=== PATIENT | male | born 1995 | race African-American/Black ===

== ENCOUNTER 2018-09-23 13:53 | Emergency (ER) | payer MEDICAID ==
[~2018-09-23] VITALS: Ht 182.9 cm; Wt 68.0 kg
[~2018-09-23 13:53] MED LIST: ABILIFY15 MG ORAL; ABILIFY20 MG ORAL; AMOXICILLIN500 MG ORAL; ATIVAN1 MG ORAL; CLARITIN10 MG ORAL; CLARITIN5 MG ORAL; IBUPROFEN600 MG ORAL; LEVAQUIN500 MG ORAL; NKM; PENICILLIN V P500 MG ORAL; PROAIR HFA8.5 GM INH; RANITIDINE HCL150 MG ORAL; RISPERDAL2 MG ORAL; TRAZODONE HCL150 MG ORAL; ZANTAC150 MG ORAL
--- NOTE | 2018-09-23 13:57 | Emergency Room Report ---
History of Present Illness General Chief Complaint: Flu Like Symptoms Source: Patient Present Illness HPI 23-year-old male patient presents ER brought in by ambulance complaining of flulike symptoms for the past 2-3 days. reports Trichomonas during this time, does not smoke persist. Reports muscle pain in his legs and decreased appetite during this time. denies recent injury, trauma, physical activity. Denies dysuria, hematuria, blood in the stool. Denies vomiting or diarrhea. Reports subjective fever at home, denies chills, afebrile currently. Denies chest pain, shortness of breath, abdominal pain. Reports history of asthma, states does not have an inhaler or use an inhaler, denies breathing difficulties during this time. Denies drinking, drugs, alcohol use. Denies other acute symptoms. denies other past medical history.states did not get influenza vaccine this year. denies sore throat. denies neck pain. denies recent travel. Patient walked into ER, nontoxic appearing, talking without difficulty. Allergies: Coded Allergies: EGG (Verified Allergy, Severe, Throat Swelling , 04/26/16) Patient History Past Medical History: see triage record Reviewed Nursing Documentation: PMH: Agreed; PSxH: Agreed Nursing Documentation-PMH Past Medical History: No Stated History Hx Hypertension: No Hx Pacemaker: No Hx Asthma: Yes Hx COPD: No Hx Diabetes: No Hx Cancer: No Hx Gastrointestinal Problems: Yes Hx Dialysis: No Hx Neurological Problems: Yes - ADHD OCD BIPOLAR Hx Cerebrovascular Accident: No Hx Seizures: No Review of Systems All Other Systems: negative except mentioned in HPI Physical Exam Vital Signs Date Time Temp Pulse Resp B/P (MAP) Pulse Ox O2 Delivery O2 Flow Rate FiO2 09/23/18 13:47 99.5 71 16 116/71 100 Room Air Sp02 EP Interpretation: reviewed, normal General Appearance: well appearing, no apparent distress, alert, GCS 15, non- toxic Head: normocephalic, atraumatic Eyes: bilateral eye normal inspection, bilateral eye PERRL ENT: hearing grossly normal, normal pharynx, no angioedema, normal voice, TMs + canals normal, uvula midline, moist mucus membranes Neck: full range of motion Respiratory: lungs clear, normal breath sounds, no rhonchi, no respiratory distress, no accessory muscle use, no wheezing, speaking full sentences, other - no stridor Cardiovascular #1: regular rate, rhythm, no edema Gastrointestinal: non tender, soft, no mass, non-distended, no guarding, no rebound Genitourinary: no CVA tenderness Musculoskeletal: back normal, digits/nails normal, gait/station normal, normal range of motion, non-tender Neurologic: alert, oriented x3, responsive, motor strength/tone normal, sensory intact Psychiatric: mood/affect normal Skin: no rash Lymphatic: no adenopathy Medical Decision Making PA Attestation Dr. Magallanes is my supervising Physician whom patient management has been discussed with. Diagnostic Impression: Primary Impression: Influenza-like symptoms ER Course Pt presents to ED c/o "flulike symptoms." DDX considered but are not limited to influenza, viral URI, pneumonia, strep throat, rhinitis, sinusitis, otitis media, otitis externa, bronchitis. VITAL SIGNS are WNL, patient is afebrile. ER COURSE: Provided with Tylenol and cough medication in the ER. physical exam benign, patient nontoxic appearing, answering questions without difficulty, smiling, ambulatory independently without difficulty. Lungs clear to auscultation, no wheezes, rhonci or rales. patient afebrile. Low suspicion for pneumonia, will not order CXR at this time. does not require breathing treatment at this time, lungs clear to auscultation, provide patient with albuterol prescription due to history of asthma. Due to the patients complaints and signs and symptoms, will provide patient with Tamiflu to cover for influenza. Symptomatic treatment. drink plenty of fluids. Salt water gargles for sore throat. Followup with PCP for further treatment and/or referral as needed. ER precautions given. DISCHARGE: -Rx given for albuterol -Rx given for Tessalon Perles -Rx given for Sudafed -Rx given for Tamiflu for influenza. -Rx provided for Claritin At this time pt is stable for d/c to home. Patient is resting comfortably, in no acute distress, nontoxic appearing. Patient to take medications as instructed Will provide with patient care instructions and any necessary prescriptions. Care plan and follow-up instructions provided. Patient instructed to follow-up with primary care provider in 3 - 5 days. Patient questions asked and answered. Patient reports understanding and agreement to treatment plan. ER precautions given. Patient instructed to return to ER immediately for any new or worsening of symptoms including but not limited to increasing SOB, persistent fever, intractable vomiting. - Please note that this Emergency Department Report was dictated using [employer] technology software, occasionally this can lead to erroneous entry secondary to interpretation by the dictation equipment. Last Vital Signs Date Time Temp Pulse Resp B/P (MAP) Pulse Ox O2 Delivery O2 Flow Rate FiO2 09/23/18 13:47 99.5 71 16 116/71 100 Room Air Status: improved Disposition: HOME, SELF-CARE Condition: Stable Scripts Loratadine (CLARITIN) 10 Mg Tablet 10 MG ORAL DAILY, #30 TAB Prov: Jac Sen 09/23/18 Oseltamivir Phosphate (Tamiflu) 75 Mg Capsule 75 MG ORAL TWICE A DAY for 5 Days, #10 CAP Prov: Jac Sen 09/23/18 Albuterol Sulfate* (ALBUTEROL SULFATE MDI*) 8.5 Gm Hfa.aer.ad 2 PUFF INH Q6H, #1 INH 0 Refills Prov: Jac Sen 09/23/18 Benzonatate* (TESSALON PERLE*) 100 Mg Capsule 100 MG ORAL THREE TIMES A DAY, #20 PERLE Prov: Jac Sen 09/23/18 D-Methorphan/PE/Acetaminophen (Sudafed PE Pressure+Pain+Cough) 1 Each Tablet 1 EACH PO TID, #24 TAB Prov: Jac Sen 09/23/18 Patient Instructions: Influenza, Adult, [id number], Upper Respiratory Infection, Adult, [id number] Additional Instructions: Followup with primary care provider in 3 -5 days. Take medications as directed. Patient questions asked and answered. ER precautions given, patient instructed to return to ER immediately for any new or worsening of symptoms. Jac Sen Sep 23, 2018 13:57
[2018-09-23] MEDS ORDERED: TESSALON PERLE100 MG ORAL (14:06)
[2018-09-23] MEDS ORDERED: CLARITIN10 MG ORAL (14:06)
[2018-09-23] MEDS ORDERED: TAMIFLU75 MG ORAL (14:06)
[2018-09-23] MEDS ORDERED: ALBUTEROL SULF8.5 GM INH (14:06)
[2018-09-23] MEDS ORDERED: SUDAFED PE PRE1 EACH PO (14:06)
[2018-09-23 14:12] VITALS: BP 116/71
[2018-09-23] MEDS ORDERED: Acetaminophen 500mg (ES) tab ORAL ONE (14:15)
[2018-09-23] MEDS ORDERED: Benzonatate 100mg Perles ORAL ONE (14:15)
[2018-09-23 15:22] VITALS: BP 116/71
== END 2018-09-23 15:24 | disposition home or self-care (01) ==
LOC: EDBD 13:53 → EMR 14:15
DX: J11.1 Influenza due to unidentified influenza virus with other respiratory manifestations (principal); J45.909 Unspecified asthma, uncomplicated; F90.9 Attention-deficit hyperactivity disorder, unspecified type; F31.9 Bipolar disorder, unspecified
CPT/HCPCS: 99283

== ENCOUNTER 2019-05-01 23:23 | Emergency (ER) | payer MEDICAID ==
[~2019-05-01] VITALS: Ht 182.9 cm; Wt 68.9 kg
[~2019-05-01 23:23] MED LIST changes: +ALBUTEROL SULF8.5 GM INH; +SUDAFED PE PRE1 EACH PO; +TAMIFLU75 MG ORAL; +TESSALON PERLE100 MG ORAL
--- NOTE | 2019-05-01 23:27 | NUR ---
ED Nurse Note: pt brought in by SALOMÓN from a restaurant c/c paranoia, pt states he smoke some weed and now has paranoia and anxiety. pt AA&ox4, gcs=15, skin warm and dry, calm and cooperative, speaking in complete sentences in normal voice tone, resp even and unlabored on RA, will cont monitor.
[2019-05-01 23:35] VITALS: BP 132/80
--- NOTE | 2019-05-01 23:50 | NUR ---
ED Nurse Note: pt on the phone, talking to friend, laughing, calm, will cont monitor.
--- NOTE | 2019-05-01 23:52 | Emergency Room Report ---
History of Present Illness General Chief Complaint: Substance Abuse Source: Medical Record Present Illness HPI Is a 24-year-old male with no past medical history. He presents with chief complaint of feeling paranoid after smoking several joints of marijuana. He had a history of heart murmur he was concerned that it may be something wrong with his heart. He felt palpitation and fast heartbeat. Denies any fever chills but denies any nausea vomiting. No suicidal thoughts or homicidal thoughts. No other complaint. Stebbins better now. Allergies: Coded Allergies: EGG (Verified Allergy, Severe, Throat Swelling , 04/26/16) Patient History Past Medical History: see triage record, old chart reviewed Past Surgical History: none Pertinent Family History: none Social History: Reports: drug use; Denies: smoking Immunizations: other Reviewed Nursing Documentation: PMH: Agreed; PSxH: Agreed Nursing Documentation-PMH Hx Hypertension: No Hx Pacemaker: No Hx Asthma: Yes Hx COPD: No Hx Diabetes: No Hx Cancer: No Hx Gastrointestinal Problems: Yes Hx Dialysis: No Hx Neurological Problems: Yes - ADHD OCD BIPOLAR Hx Cerebrovascular Accident: No Hx Seizures: No Review of Systems Eye: Denies: eye pain, blurred vision ENT: Denies: ear pain, nose congestion, throat swelling Respiratory: Denies: cough, shortness of breath Cardiovascular: Denies: chest pain, palpitations Gastrointestinal: Denies: abdominal pain, diarrhea, nausea, vomiting Musculoskeletal: Denies: back pain, joint pain Skin: Denies: rash Neurological: Denies: headache, numbness Endocrine: Denies: increased thirst, increased urine Hematologic/Lymphatic: Denies: easy bruising All Other Systems: negative except mentioned in HPI Physical Exam Vital Signs Date Time Temp Pulse Resp B/P (MAP) Pulse Ox O2 Delivery O2 Flow Rate FiO2 05/01/19 23:12 98.1 82 16 132/80 (97) 99 Room Air Vitals normal Sp02 EP Interpretation: reviewed, normal General Appearance: well appearing, no apparent distress, alert Head: normocephalic, atraumatic Eyes: bilateral eye PERRL, bilateral eye EOMI ENT: hearing grossly normal, normal pharynx Neck: full range of motion, supple, no meningismus Respiratory: chest non-tender, lungs clear, normal breath sounds Cardiovascular #1: regular rate, rhythm, no murmur Gastrointestinal: normal bowel sounds, non tender, no mass, no organomegaly, no bruit, non-distended Musculoskeletal: back normal, gait/station normal, normal range of motion Psychiatric: mood/affect normal Medical Decision Making Diagnostic Impression: Primary Impression: Cannabis-induced anxiety disorder ER Course Patient with cannabis induced anxiety. Denies suicidal thoughts homicidal thought. No criteria for 5150. Will discharge home. Last Vital Signs Date Time Temp Pulse Resp B/P (MAP) Pulse Ox O2 Delivery O2 Flow Rate FiO2 05/01/19 23:35 98.1 82 16 132/80 99 Room Air Status: improved Disposition: HOME, SELF-CARE Condition: Stable Patient Instructions: Cannabis Use Disorder Additional Instructions: Follow-up with your doctor in 7 days. Return if worse. Miquel Tineo MD May 01, 2019 23:52
--- NOTE | 2019-05-01 23:55 | NUR ---
ED Nurse Note: pt cleared to be d/c per ERMD, pt discharge and aftercare instruction provided, pt education done via discussion and handout, pt advised to follow up with pcp or return to ed if changes in condition, pt verbalized understanding and agrees with plan, vss, ambulatory w/ steady gait, left w/ all belongings.
[2019-05-01 23:56] VITALS: BP 115/76
== END 2019-05-01 23:56 | disposition home or self-care (01) ==
LOC: EDBD 23:23 → EMR 23:45
DX: F12.180 Cannabis abuse with cannabis-induced anxiety disorder (principal); F90.9 Attention-deficit hyperactivity disorder, unspecified type; F42.9 Obsessive-compulsive disorder, unspecified; F31.9 Bipolar disorder, unspecified; J45.909 Unspecified asthma, uncomplicated; Z91.012 Allergy to eggs
CPT/HCPCS: 99281

== ENCOUNTER 2020-01-04 23:06 | Emergency (ER) | payer MEDICAID ==
[~2020-01-04] VITALS: Ht 182.9 cm; Wt 70.8 kg
[2020-01-04 23:15] VITALS: BP 124/83
--- NOTE | 2020-01-04 23:15 | NUR ---
ED Nurse Note: Pt walked into ED from home for c/o difficulty urinating and clear penile discharge x 2 days. Pt also reports penile pain. Pt is aaox4, no acute distress noted. Pt states he has had recent unprotected sex.
--- NOTE | 2020-01-04 23:27 | Emergency Room Report ---
History of Present Illness General Chief Complaint: Male Urogenital Problems Source: Patient Present Illness HPI Is a 24-year-old male with no significant past medical history. He presents with complaint of a penile discharge. Onset today. He had unprotected sex 2 days ago with a female. Now with dark discharge. No fever chills but no testicular pain. No abdominal pain. Said that he never had this problem before. Allergies: Coded Allergies: EGG (Verified Allergy, Severe, Throat Swelling , 04/26/16) Patient History Past Medical History: see triage record, old chart reviewed Past Surgical History: none Pertinent Family History: none Social History: Reports: smoking Immunizations: other Reviewed Nursing Documentation: PMH: Agreed; PSxH: Agreed Nursing Documentation-PMH Past Medical History: No Stated History Hx Hypertension: No Hx Pacemaker: No Hx Asthma: Yes Hx COPD: No Hx Diabetes: No Hx Cancer: No Hx Gastrointestinal Problems: Yes Hx Dialysis: No Hx Neurological Problems: Yes - ADHD OCD BIPOLAR Hx Cerebrovascular Accident: No Hx Seizures: No Review of Systems Eye: Denies: eye pain, blurred vision ENT: Denies: ear pain, nose congestion, throat swelling Respiratory: Denies: cough, shortness of breath Cardiovascular: Denies: chest pain, palpitations Gastrointestinal: Denies: abdominal pain, diarrhea, nausea, vomiting Genitourinary: Reports: vag bleed/dc Musculoskeletal: Denies: back pain, joint pain Skin: Denies: rash Neurological: Denies: headache, numbness Endocrine: Denies: increased thirst, increased urine Hematologic/Lymphatic: Denies: easy bruising All Other Systems: negative except mentioned in HPI Physical Exam Vital Signs Date Time Temp Pulse Resp B/P (MAP) Pulse Ox O2 Delivery O2 Flow Rate FiO2 01/04/20 23:08 99.0 86 14 124/83 (97) 98 Room Air Vitals normal Sp02 EP Interpretation: reviewed, normal General Appearance: well appearing, no apparent distress, alert Head: normocephalic, atraumatic Eyes: bilateral eye PERRL, bilateral eye EOMI ENT: hearing grossly normal, normal pharynx Neck: full range of motion, supple, no meningismus Respiratory: chest non-tender, lungs clear, normal breath sounds Cardiovascular #1: regular rate, rhythm, no murmur Gastrointestinal: normal bowel sounds, non tender, no mass, no organomegaly, no bruit, non-distended Genitourinary: other - Greenish discharge. No testicular tenderness. Patient is circumcised. Musculoskeletal: back normal, normal range of motion, gait/station normal Psychiatric: mood/affect normal Medical Decision Making Diagnostic Impression: Primary Impression: Urethritis ER Course This patient presents with urethritis. Most likely gonorrhea. Rocephin and azithromycin given here. Will discharge home. Recommend outpatient HIV testing , hepatitis, syphilis, and other STDs. Also told patient to have his partner treated. Last Vital Signs Date Time Temp Pulse Resp B/P (MAP) Pulse Ox O2 Delivery O2 Flow Rate FiO2 01/04/20 23:08 99.0 86 14 124/83 (97) 98 Room Air Status: improved Disposition: HOME, SELF-CARE Condition: Stable Patient Instructions: Urethritis, Adult Additional Instructions: Have your partner treated also. Follow-up with your doctor in 7 days. Recommend outpatient testing for HIV, hepatitis, syphilis and other STDs. Return if worse. Miquel Tineo MD Jan 04, 2020 23:27
[2020-01-04] MEDS ORDERED: Lidocaine 1% MPF 10mg/ml 5ml INJ ONE (23:30)
[2020-01-04] MEDS ORDERED: Azithromycin 250mg tab ORAL ONE (23:30)
[2020-01-04 23:35] VITALS: BP 124/83
--- NOTE | 2020-01-04 23:35 | NUR ---
ER DISCHARGE NOTE: Patient is cleared to be discharged per ERMD, pt is aox4, on room air, with stable vital signs. pt was given dc and follow up instructions, pt was able to verbalize understanding, pt id band removed. pt is able to ambulate with steady gait. pt took all belongings.
== END 2020-01-04 23:35 | disposition home or self-care (01) ==
LOC: EMR 23:28
DX: N34.2 Other urethritis (principal); J45.909 Unspecified asthma, uncomplicated; F31.9 Bipolar disorder, unspecified; F90.9 Attention-deficit hyperactivity disorder, unspecified type; Z91.012 Allergy to eggs
CPT/HCPCS: 96372; 96374; J0696; Q0144; Z7502; 99284

== ENCOUNTER 2020-06-03 21:39 | Emergency (ER) | payer MEDICAID ==
[~2020-06-03] VITALS: Ht 182.9 cm; Wt 67.6 kg
[2020-06-03 21:46] VITALS: BP 127/94
--- NOTE | 2020-06-03 21:46 | NUR ---
ED Nurse Note: Patient walked in to ED c/o abscess to left groin, unk cause x4 days. Pt reports pus discharges and itchiness from the site. Denies pain. No SOB, on room air. Pt AAOX4. ERMD at bedside.
--- NOTE | 2020-06-03 22:01 | Emergency Room Report ---
History of Present Illness General Chief Complaint: Skin Rash/Abscess Source: Patient Present Illness HPI Patient is a 25-year-old male presents after increased left-sided skin rash. Reports having onset of symptoms approximately 4 days. Denies any progression of the rash. Had not been having any fever. Denies any genital lesions. Onset after recent shaving. Had no blistering. Denies any dysuria or painful area. Reports having moderate itching to the area. Denies any inguinal rash. Allergies: Coded Allergies: EGG (Verified Allergy, Severe, Throat Swelling , 04/26/16) PEANUT (Verified Allergy, Unknown, 06/03/20) COVID-19 Screening Contact w/high risk pt: No Experienced COVID-19 symptoms?: No COVID-19 Testing performed BRACER: No Patient History Past Medical History: see triage record Reviewed Nursing Documentation: PMH: Agreed; PSxH: Agreed Nursing Documentation-PM Past Medical History: No Stated History Hx Hypertension: No Hx Pacemaker: No Hx Asthma: Yes Hx COPD: No Hx Diabetes: No Hx Cancer: No Hx Gastrointestinal Problems: Yes Hx Dialysis: No Hx Neurological Problems: Yes - ADHD OCD BIPOLAR Hx Cerebrovascular Accident: No Hx Seizures: No Review of Systems All Other Systems: negative except mentioned in HPI Physical Exam Vital Signs Date Time Temp Pulse Resp B/P (MAP) Pulse Ox O2 Delivery O2 Flow Rate FiO2 06/03/20 21:42 99.0 94 18 127/94 (105) 96 Room Air General Appearance: well appearing, no apparent distress, alert, GCS 15, non- toxic Head: normocephalic, atraumatic ENT: hearing grossly normal, normal voice Neck: full range of motion, supple Respiratory: no respiratory distress, speaking full sentences Genitourinary: normal inspection Musculoskeletal: no calf tenderness Neurologic: alert, motor strength/tone normal, oriented x3, normal gait Psychiatric: mood/affect normal Skin: other - patchy area to left lower abdomen area without erythema some excoriation. Medical Decision Making Diagnostic Impression: Primary Impression: Contact dermatitis Additional Impression: Folliculitis ER Course Present for skin rash. Differential diagnosis include was not limited to contact dermatitis, abscess, eczema, among others. Patient has a benign exam and does not appear to require any imaging or laboratory testing at this time. Patient does not have any definite evidence of infection at this time he was given a prescription for oral antibiotics as well as Topical steroids. Patient denies any genital lesions. Patient's skin rash appears to be contact dermatitis which may be related to recent use of a metal belt versus shaving. He was advised to return if worse. Patient was advised to follow-up in 2 days for recheck. This medical record is generated with [employer] time motion analyst software. There may be some time motion analyst discrepancies related to use of this software Last Vital Signs Date Time Temp Pulse Resp B/P (MAP) Pulse Ox O2 Delivery O2 Flow Rate FiO2 06/03/20 21:46 99.0 75 18 127/94 96 Room Air Status: improved Disposition: HOME, SELF-CARE Condition: Stable Scripts Cephalexin* (KEFLEX*) 500 Mg Capsule 500 MG ORAL EVERY 6 HOURS, #28 CAP Prov: Femi Magallanes MD 06/03/20 Hydrocortisone 2% Cream (ANTI-ITCH 2% CREAM) Y Cr 28 GM TP DAILY for itching, #30 GM Prov: Femi Magallanes MD 06/03/20 Femi Magallanes MD Jun 03, 2020 22:01
[2020-06-03] MEDS ORDERED: ANTI-ITCH28 G1 TP (22:03)
[2020-06-03] MEDS ORDERED: CEPHALEXIN500 MG ORAL (22:03)
[2020-06-03 22:11] VITALS: BP 127/94
--- NOTE | 2020-06-03 22:11 | NUR ---
ED Nurse Note: Pt cleared by ERMD for discharge. DC instructions/prescription was given and explained to pt and verbalized understanding of teachings. All medical deviecs such as ID band removed. Pt is AAO x4, ambulatory and left with all personal belongings.
== END 2020-06-03 22:11 | disposition home or self-care (01) ==
LOC: EMR 21:50
DX: L25.9 Unspecified contact dermatitis, unspecified cause (principal); L73.9 Follicular disorder, unspecified; Z91.012 Allergy to eggs; Z91.010 Allergy to peanuts; F31.9 Bipolar disorder, unspecified; F90.9 Attention-deficit hyperactivity disorder, unspecified type
CPT/HCPCS: 99282